=== PATIENT | female | born 1950 | race Two or more races ===

== ENCOUNTER 2021-10-27 05:51 | Inpatient (IN) | payer OTHER | END 2021-10-28 12:38 | disposition home or self-care (01) | DRG 395 | LOC: AMB-ENDOS 05:51 → OB/GYN 10:10 → O/R 10:10 → OB/GYN 10:14 → AMB-ENDOS 15:00 → OB/GYN 10-28 12:38 | PROVIDERS: ADMIT Surgery; ATTEND Surgery | PROC: 0DCN8ZZ Extirpation of Matter from Sigmoid Colon, Via Natural or Artificial Opening Endoscopic (ICD-10-PCS; principal; 2021-10-27) | DX: T18.4XXA Foreign body in colon, initial encounter (principal); K57.30 Diverticulosis of large intestine without perforation or abscess without bleeding; Z20.822 Contact with and (suspected) exposure to COVID-19 ==